=== PATIENT | female | born 1955 | race Caucasian/White ===

== ENCOUNTER → 2023-08-08 07:49 | Outpatient (REF) | payer MEDICARE, OTHER, SELFPAY | LOC: DHCBC/DCA 07:49 | PROVIDERS: ATTENDING PHYSICIAN Internal Medicine Cardiovascular Disease; FAMILY PHYSICIAN Internal Medicine | DX: R06.02 Shortness of breath (principal) | CPT/HCPCS: 78452; 93017; A9500; J2785 ==

== ENCOUNTER → 2023-09-06 12:43 | Outpatient (REF) | payer MEDICARE, OTHER, SELFPAY | LOC: RAD 12:43 | PROVIDERS: ATTENDING PHYSICIAN Internal Medicine | DX: R06.02 Shortness of breath (principal) | CPT/HCPCS: 71046 ==

== ENCOUNTER → 2023-11-16 14:19 | Outpatient (REF) | payer MEDICARE, OTHER, SELFPAY | LOC: RAD 14:19 | PROVIDERS: ATTENDING PHYSICIAN Nurse Practitioner Family | DX: J06.9 Acute upper respiratory infection, unspecified (principal) | CPT/HCPCS: 71046 ==

== ENCOUNTER → 2024-09-28 09:49 | Outpatient (REF) | payer MEDICARE, OTHER, SELFPAY | LOC: HWRCS 09:49 | PROVIDERS: ATTENDING PHYSICIAN Internal Medicine Cardiovascular Disease; FAMILY PHYSICIAN Family Medicine | DX: I34.0 Nonrheumatic mitral (valve) insufficiency (principal) | CPT/HCPCS: 93306 ==

== ENCOUNTER 2024-12-08 09:37 | Emergency (ER) | payer MEDICARE, OTHER, SELFPAY ==
[2024-12-08 09:39] VITALS: BP 145/73
[2024-12-08 10:37] VITALS: BMI 31.9
[2024-12-08 10:52] VITALS: BP 153/64
[2024-12-08 10:56] LABS: % Basophils 0.5 % (0-2); % Eosinophils 3.1 % (0-6); % Immature Granulocytes 0.2 % (0-0.5); % Lymphocytes 33.2 % (20.5-51.1); % Monocytes 9.1 % (1.7-9.3); % Neutrophils 53.9 % (42.2-75.2); Absolute Eosinophils 0.1 10^3/uL (0-0.7); Absolute Lymphocytes 1.4 10^3/uL (1.2-3.4); Absolute Monocytes 0.4 10^3/uL (0.1-0.6); Absolute Neutrophils 2.2 10^3/uL (1.4-6.5); Hematocrit 38.9 % (37.0-47.0); Hemoglobin 13.5 g/dL (12.0-16.0); Mean Corp Hgb Conc. 34.7 g/dL (33.0-37.0); Mean Corpuscular Hgb 31.9 pg (27.0-31.0); Mean Platelet Volume 9.6 fL (7.4-10.4); Nucleated Red Blood Cells % 0 %; Platelet Count 134 10^3/uL (130-400); Red Blood Cell Count 4.23 10^6/uL (4.20-5.40); Red Cell Dist. Width 12.3 % (11.5-14.5); White Blood Cell Count 4.2 10^3/uL (4.8-10.8)
[2024-12-08 11:13] LABS: Erythrocyte Sed Rate 2 mm/hour (0-20)
[2024-12-08 11:17] LABS: Blood Urea Nitrogen 25 mg/dl (7-17); Calcium 9.5 mg/dl (8.4-10.2); Carbon Dioxide 24 mmol/L (22-30); Chloride 112 mmol/L (98-107); Estimated Creatinine Clearance 84 ml/min; Glucose 108 mg/dl (70-99); Potassium 4.5 mmol/L (3.5-5.1); Sodium 144 mmol/L (135-145); eGFR > 60.00
[2024-12-08] MEDS: ATIVAN 0.5 MG PO (11:39)
[2024-12-08 13:08] VITALS: BP 155/70
--- NOTE | 2024-12-08 13:33 | ED.GENMED ---
History of Present Illness
General
Chief Complaint: Facial Problem
Source: patient
Exam Limitations: none
Time Seen by Provider: 12/08/24 10:17
History of Present Illness
History of Present Illness:
Patient looked in the mirror and felt she had a slight right facial droop this morning. No other symptoms. No headache visual issues double vision. Speech issues. Gait issues etc. No history of same. Questionable small insect or scab to the
left upper chest wall
Past History
Past History
ED Past Medical History: HTN and Hypercholesterolemia
ED Past Surgical History: None
Social History
Tobacco: Non-smoker
Review of Systems
Review of Systems
All Other Systems: Not applicable
Constitutional: Denies fever
Respiratory: Reports no symptoms
Cardiac: Reports no symptoms
Phy Exam
Physical Exam
Physical Exam:
GENERAL: Alert and oriented in no apparent distress
EYE: Orbits normal.
NECK: Supple, no carotid bruit
ENT: Pharynx without erythema
CARDIAC: Regular rate and rhythm without any obvious murmurs.
LUNGS: Clear breath sounds,normal
ABDOMEN: Soft, without focal tenderness or distention
NEUROLOGICAL: Alert and oriented , speech normal. [id number] normal. Extraocular muscles intact. I do not appreciate any obvious loss of nasolabial fold or loss of muscle strength to the right or left face. Forehead is spared bilaterally.
SKIN: Warm and dry, very tiny scab appearance to the left upper chest wall. This was carefully flaked off. May have been a residual insect or tick. However no surrounding erythema no ECM rash
MUSCULOSKELETAL: No edema,no deformity.Good color
PSYCH: Normal and appropriate interaction.
Course
Orders/Labs/Results
Orders:
Orders
12/08/24 10:33
IV Insert/Care/Rem.- Treatment PRN
12/08/24 10:39
MR Brain Without Contrast Urgent
Comment:
Reason For Exam: Right facial droop
Recent pill cam endoscopy?: No
12/08/24 10:40
Basic Metabolic Panel Urgent
Complete Blood Count/With Diff Urgent
Erythrocyte Sed Rate Urgent
Lyme Progressive Urgent
TSH Reflex To Free T4 Urgent
12/08/24 11:19
Lorazepam [Ativan] 0.5 mg PO NOW STA
Abnormal Lab Results
12/08/24
10:40
WBC 4.2 L 10^3/uL
(4.8-10.8)
MCH 31.9 H pg
(27.0-31.0)
Chloride 112 H mmol/L
(98-107)
BUN 25 H mg/dl
(7-17)
Glucose 108 H mg/dl
(70-99)
12/08/24 10:40
12/08/24 10:40
Vital Signs
Initial and Last Documented VS:
Initial Vital Signs
Temp Pulse Resp BP Pulse Ox
98.5 F 68 16 145/73 95
12/08/24 09:39 12/08/24 09:39 12/08/24 09:39 12/08/24 09:39 12/08/24 09:39
Last Documented Vital Signs
Temp Pulse Resp BP Pulse Ox
98.5 F 57 22 155/70 99
12/08/24 09:39 12/08/24 13:08 12/08/24 13:08 12/08/24 13:08 12/08/24 13:35
*Radiology
Radiology exam reviewed: radiology read reviewed (Negative MRI)
*Pulse Oximetry
SaO2: 99
Oxygen Mode of Delivery: Room air
Patient hypoxic: no
*Critical Care Note
Total Time (30-74mins, 75-104mins- exclusive of procedures): Not Applicable
Update Note
Update Note:
Patient has remained medically stable and nontoxic again I do not appreciate any obvious true facial droop. Will give a short prescription for prednisone but will hold off. Has a small abrasion to her hand that occurred the other day. Will need a
tetanus vaccine but will hold on that for a few days until the dust settles on this issue.
ED Attending Note
-
Portions of this chart may have been created with voice recognition software.� Occasional wrong word or��sound alike� substitutions may have occurred due to the inherent limitations of voice recognition software.
Discharge Plan
Departure
Patient Disposition: Home (Routine Discharge)
Date of Disposition: 12/08/24
Time of Disposition: 13:35
Patient with high blood pressure during this ER visit?: Yes
Discharge Problem:
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
Instructions: Aquino's Palsy (DC), BLOOD PRESSURE
Prescriptions:
New
prednisone 50 mg tablet
50 mg PO DAILY Qty: 5 0RF
No Action
irbesartan-hydrochlorothiazide 1 EACH tablet
1 ea PO BID
atorvastatin 10 MG tablet
20 mg PO QPM
metoprolol succinate 100 MG tablet extended release 24 hr
200 mg PO DAILY
docosahexaenoic acid-epa 1 CAP capsule
1 cap PO DAILY
duloxetine 60 MG capsule,delayed release(DR/EC)
60 mg PO DAILY
cholecalciferol (vitamin D3) 2,000 UNITS tablet
4,000 units PO DAILY
Referrals:
Patricia Wall MD [Family Provider, Family Practice] - Follow up in 2-3 days
Activity Restrictions/Additional Instructions:
Contact your primary physician Tuesday morning to get a tetanus shot early this week
Start the prednisone if you feel the facial weakness progresses
Also get rechecked immediately with any other neurologic symptoms
The Lyme titer should be back in 2 to 3 days
Interventions
Interventions:
*Risk Screen - Suicide Last Done: 12/08/24 09:43
*General Assessment Last Done: 12/08/24 10:37
*Neglect/Abuse Screening Last Done: 12/08/24 09:43
*ED- Fall Risk Assessment Last Done: 12/08/24 10:37
*ED COVID-19 Vaccine History Last Done: 12/08/24 10:37
Discharge Date and Time
Print Language: BULGARIAN
[2024-12-10 14:02] LABS: Lyme Antibody Screen, EIA Negative (Negative)
== END 2024-12-08 13:50 | disposition home or self-care (01) ==
LOC: EMR 09:37
PROVIDERS: EMERGENCY PHYSICIAN Emergency Medicine; FAMILY PHYSICIAN Family Medicine
DX: R29.810 Facial weakness (principal); S60.511A Abrasion of right hand, initial encounter; X58.XXXA Exposure to other specified factors, initial encounter; E78.00 Pure hypercholesterolemia, unspecified; I10 Essential (primary) hypertension
CPT/HCPCS: 99284; 70551; 80048; 84443; 85025; 85652; 86618

== ENCOUNTER → 2025-05-02 11:40 | Outpatient (REF) | payer MEDICARE, OTHER, SELFPAY | LOC: REG 11:40 | PROVIDERS: ATTENDING PHYSICIAN Internal Medicine Gastroenterology | DX: R19.4 Change in bowel habit (principal) | CPT/HCPCS: 74018 ==